=== PATIENT | female | born 1980 | race African-American/Black ===

== ENCOUNTER 2017-03-24 09:07 | Emergency (ER) | payer SELFPAY ==
[~2017-03-24] VITALS: Ht 167.6 cm; Wt 88.5 kg
[2017-03-24] MEDS ORDERED: ONDANSETRON PF 4 MG/2 ML VIAL. IV ONE (10:00)
[2017-03-24] MEDS ORDERED: FAMOTIDINE 20 MG/2 ML VIAL IVP ONE (10:00)
--- NOTE | 2017-03-24 10:06 | PHYS DOC ---
Past Medical History Past Medical History: Asthma Past Surgical History: Tubal ligation Alcohol Use: None Drug Use: None Adult General Chief Complaint Chief Complaint: ABDOMINAL PAIN HPI HPI Patient is a 36 year old female presents the ED complaining of upper abdominal pain 4 days. Patient states that after she eats, she has a burning sensation in her upper abdomen and her throat. Describes the pain as burning. Rates the pain as 4 out of 10. Associated symptoms include nausea. LMP was at the beginning of March. Denies headache, fever, vomiting, dizziness, weakness, chest pain or shortness of breath. Review of Systems Review of Systems Constitutional: Denies fever or chills [] Eyes: Denies change in visual acuity, redness, or eye pain [] HENT: Denies nasal congestion or sore throat [] Respiratory: Denies cough or shortness of breath [] Cardiovascular: No additional information not addressed in HPI [] GI: Complains of nausea and abdominal pain. Denies vomiting, bloody stools or diarrhea [] : Denies dysuria or hematuria [] Musculoskeletal: Denies back pain or joint pain [] Integument: Denies rash or skin lesions [] Neurologic: Denies headache, focal weakness or sensory changes [] Endocrine: Denies polyuria or polydipsia [] All other systems were reviewed and found to be within normal limits, except as documented in this note. Current Medications Current Medications Current Medications Medications (Trade) Dose Ordered Sig/[facility] Start Time Stop Time Status Last Admin Dose Admin Famotidine (Pepcid Vial) 20 mg 1X ONCE 03/24/17 10:00 03/24/17 10:01 DC 03/24/17 10:29 20 MG Ondansetron HCl (Zofran) 4 mg 1X ONCE 03/24/17 10:00 03/24/17 10:01 DC 03/24/17 10:30 4 MG Allergies Allergies Allergies Coded Allergies Type Severity Reaction Last Updated Verified No Known Drug Allergies 03/24/17 No Physical Exam Physical Exam Constitutional: Well developed, well nourished, no acute distress, non-toxic appearance. [] HENT: Normocephalic, atraumatic, oropharynx moist Neck: Normal range of motion, no tenderness, supple, no stridor. [] Cardiovascular:Heart rate regular rhythm, no murmur [] Lungs & Thorax: Bilateral breath sounds clear to auscultation [] Abdomen: Bowel sounds normal, soft, no tenderness, no masses, no pulsatile masses. [] Skin: Warm, dry, no erythema, no rash. [] Back: No tenderness, no CVA tenderness. [] Extremities: No tenderness, no cyanosis, no clubbing, ROM intact, no edema. [] Neurologic: Alert and oriented X 3, normal motor function, normal sensory function, no focal deficits noted. [] Psychologic: Affect normal, judgement normal, mood normal. [] Current Patient Data Vital Signs Vital Signs Date Time Temp Pulse Resp B/P (MAP) Pulse Ox O2 Delivery O2 Flow Rate FiO2 03/24/17 10:50 70 18 121/66 (84) 98 Room Air 03/24/17 09:34 98.0 98.0 Lab Values Laboratory Tests Test 03/24/17 09:55 03/24/17 10:02 03/24/17 10:05 White Blood Count 7.2 x10^3/uL (4.0-11.0) Red Blood Count 4.23 x10^6/uL (3.50-5.40) Hemoglobin 12.6 g/dL (12.0-15.5) Hematocrit 38.4 % (36.0-47.0) Mean Corpuscular Volume 91 fL (79-100) Mean Corpuscular Hemoglobin 30 pg (25-35) Mean Corpuscular Hemoglobin Concent 33 g/dL (31-37) Red Cell Distribution Width 12.8 % (11.5-14.5) Platelet Count 332 x10^3/uL (140-400) Sodium Level 140 mmol/L (136-145) Potassium Level 3.7 mmol/L (3.5-5.1) Chloride Level 104 mmol/L (98-107) Carbon Dioxide Level 24 mmol/L (21-32) Anion Gap 12 (6-14) Blood Urea Nitrogen 10 mg/dL (7-20) Creatinine 0.7 mg/dL (0.6-1.0) Estimated GFR (Cockcroft-Gault) 115.2 BUN/Creatinine Ratio 14 (6-20) Glucose Level 90 mg/dL (70-99) Calcium Level 8.3 mg/dL (8.5-10.1) L Total Bilirubin 0.5 mg/dL (0.2-1.0) Aspartate Amino Transferase (AST) 15 U/L (15-37) Alanine Aminotransferase (ALT) 18 U/L (14-59) Alkaline Phosphatase 60 U/L (46-116) Total Protein 7.4 g/dL (6.4-8.2) Albumin 3.4 g/dL (3.4-5.0) Albumin/Globulin Ratio 0.9 (1.0-1.7) L Lipase 161 U/L (73-393) Urine Collection Type Unknown Urine Color Yellow Urine Clarity Clear Urine pH 6.0 Urine Specific [place] 1.025 Urine Protein Negative mg/dL (NEG-TRACE) Urine Glucose (UA) Negative mg/dL (NEG) Urine Ketones (Stick) Trace mg/dL (NEG) Urine Blood Negative (NEG) Urine Nitrite Negative (NEG) Urine Bilirubin Negative (NEG) Urine Urobilinogen Dipstick 1.0 mg/dL (0.2 mg/dL) Urine Leukocyte Esterase Negative (NEG) Urine RBC 0 /HPF (0-2) Urine WBC Occ /HPF (0-4) Urine Squamous Epithelial Cells Mod /LPF Urine Bacteria Mod /HPF (0-FEW) Urine Mucus Marked /LPF POC Urine HCG, Qualitative Hcg negative (Negative) Laboratory Tests 03/24/17 09:55 Laboratory Tests 03/24/17 09:55 EKG EKG [] Radiology/Procedures Radiology/Procedures [] Course & Med Decision Making Course & Med Decision Making Pertinent Labs and Imaging studies reviewed. (See chart for details) []Discussed lab findings with patient. Patient's pain has resolved. Vitals stable, no acute distress. On reexamination, abdomen is soft nontender nondistended. No peritoneal signs. Tolerating by mouth. Will discharge with Prilosec. Discussed follow-up with GI in 1-2 days. Provided contact information/ education. Discussed reasons to return to the ED. Patient understands and agrees with plan. Dragon Disclaimer Dragon Disclaimer This electronic medical record was generated, in whole or in part, using a voice recognition dictation system. Departure Departure Impression: Primary Impression: Acid reflux Disposition: 01 HOME, SELF-CARE Condition: IMPROVED Referrals: DIANA ACUÑA MD Patient Instructions: Diet for Gastroesophageal Reflux Disease, Adult, Gastroesophageal Reflux Disease, Adult Scripts Omeprazole Magnesium (PRILOSEC OTC) 20 Mg Tablet.dr 1 TAB PO DAILY, #20 TAB 3 Refills Prov: SIMI SILVA 03/24/17 SIMI SILVA Mar 24, 2017 10:06
[2017-03-24 10:09] LABS: HEMATOCRIT 38.4 % (36.0-47.0); HEMOGLOBIN 12.6 g/dL (12.0-15.5); RED BLOOD COUNT 4.23 x10^6/uL (3.50-5.40); RED CELL DISTRIBUTION WIDTH 12.8 % (11.5-14.5); WHITE BLOOD COUNT 7.2 x10^3/uL (4.0-11.0)
[2017-03-24 10:17] LABS: BILIRUBIN,URINE NEGATIVE (NEG); GLUCOSE,URINE NEGATIVE (NEG); NITRITE,URINE NEGATIVE (NEG); PROTEIN,URINE NEGATIVE (NEG-TRACE)
[2017-03-24 10:28] LABS: BACTERIA,URINE MOD /HPF (0-FEW); RBC,URINE 0 /HPF (0-2); SQUAMOUS EPITHELIAL CELL,UR MOD /LPF; WBC,URINE OCC /HPF (0-4)
[2017-03-24 10:31] LABS: CALCIUM 8.3 mg/dL (8.5-10.1); CREATININE 0.7 mg/dL (0.6-1.0); GFR 115.2; POTASSIUM 3.7 mmol/L (3.5-5.1)
[2017-03-24 10:37] LABS: ALBUMIN 3.4 g/dL (3.4-5.0); ALBUMIN/GLOBULIN RATIO 0.9 (1.0-1.7); TOTAL BILIRUBIN 0.5 mg/dL (0.2-1.0); TOTAL PROTEIN 7.4 g/dL (6.4-8.2)
[2017-03-24] MEDS ORDERED: OMEP20TA63 PO (10:48)
[2017-03-24 10:50] VITALS: BP 121/66
== END 2017-03-24 10:55 | disposition home or self-care (01) ==
LOC: ER 09:07
DX: K21.9 Gastro-esophageal reflux disease without esophagitis (principal); J45.909 Unspecified asthma, uncomplicated
CPT/HCPCS: 36415; 80053; 81001; 81025; 83690; 85027; 96374; 96375; 99284; J2405; S0028

== ENCOUNTER 2018-04-22 12:54 | Emergency (ER) | payer SELFPAY ==
[~2018-04-22] VITALS: Ht 167.6 cm; Wt 86.2 kg
[~2018-04-22 12:54] MED LIST: OMEP20TA63 PO
[2018-04-22 13:43] VITALS: BP 108/65
[2018-04-22] MEDS ORDERED: HYDROcodone/APAP 5/325MG 1 TAB TABLET PO ONE (14:00)
[2018-04-22] MEDS ORDERED: SULF1TAB24 PO (14:10)
[2018-04-22] MEDS ORDERED: HYDR-3164 PO (14:11)
--- NOTE | 2018-04-22 14:11 | PHYS DOC ---
Past Medical History Past Medical History: Asthma Past Surgical History: Tubal ligation Alcohol Use: None Drug Use: None Adult General Chief Complaint Chief Complaint: ABSCESS HPI HPI Patient is a 37 year old female who presents with an abscess behind her ear x 1 week. She denies fever, nausea or vomiting. Review of Systems Review of Systems Constitutional: Denies fever or chills [] Eyes: Denies change in visual acuity, redness, or eye pain [] HENT: Denies nasal congestion or sore throat [] Respiratory: Denies cough or shortness of breath [] Cardiovascular: No additional information not addressed in HPI [] GI: Denies abdominal pain, nausea, vomiting, bloody stools or diarrhea [] : Denies dysuria or hematuria [] Musculoskeletal: Denies back pain or joint pain [] Integument: See HPI Neurologic: Denies headache, focal weakness or sensory changes [] Endocrine: Denies polyuria or polydipsia [] All other systems were reviewed and found to be within normal limits, except as documented in this note. Current Medications Current Medications Current Medications Medications (Trade) Dose Ordered Sig/[facility] Start Time Stop Time Status Last Admin Dose Admin Acetaminophen/ Hydrocodone Bitart (Lortab 5/325) 1 tab 1X ONCE 04/22/18 14:00 04/22/18 14:01 DC 04/22/18 14:08 1 TAB Allergies Allergies Allergies Coded Allergies Type Severity Reaction Last Updated Verified No Known Drug Allergies 03/24/17 No Physical Exam Physical Exam Constitutional: Well developed, well nourished, no acute distress, non-toxic appearance. [] HENT: Normocephalic, atraumatic, bilateral external ears normal, oropharynx moist, no oral exudates, nose normal. [] Eyes: PERRLA, EOMI, conjunctiva normal, no discharge. [] Neck: Normal range of motion, no tenderness, supple, no stridor. [] Cardiovascular:Heart rate regular rhythm, no murmur [] Lungs & Thorax: Bilateral breath sounds clear to auscultation [] Abdomen: Bowel sounds normal, soft, no tenderness, no masses, no pulsatile masses. [] Skin: There is a 1 cm papule with induration but no fluctuance Back: No tenderness, no CVA tenderness. [] Extremities: No tenderness, no cyanosis, no clubbing, ROM intact, no edema. [] Neurologic: Alert and oriented X 3, normal motor function, normal sensory function, no focal deficits noted. [] Psychologic: Affect normal, judgement normal, mood normal. [] Current Patient Data Vital Signs EKG EKG [] Radiology/Procedures Radiology/Procedures [] Course & Med Decision Making Course & Med Decision Making Pertinent Labs and Imaging studies reviewed. (See chart for details) [] Staff Physician Addendum: I was working in the ER during the course of this patient's visit. I was available for consultation as needed, but I was not directly involved in the care of this patient. Dragon Disclaimer Dragon Disclaimer This electronic medical record was generated, in whole or in part, using a voice recognition dictation system. Departure Departure Impression: Primary Impression: Abscess Disposition: 01 HOME, SELF-CARE Condition: STABLE Referrals: NO PCP (PCP) Patient Instructions: Abscess Additional Instructions: Take medication as prescribed. Do not drive or operate heavy machinery while taking the pain medication. Use hot compresses several times daily. If not i mproving in 3-4 days follow-up with your primary care provider or return to the emergency department if worsening. Scripts Hydrocodone/Apap 5-325 (NORCO 5-325 TABLET) 1 Each Tablet 1 TAB PO PRN Q6HRS PRN for PAIN, #10 TAB 0 Refills Prov: SHELLEY CUEVAS APRN 04/22/18 Sulfamethoxazole/Trimethoprim (BACTRIM DS TABLET) 1 Each Tablet 1 TAB PO BID for abscess, #20 TAB Prov: SHELLEY CUEVAS APRN 04/22/18 SHELLEY CUEVAS APRN Apr 22, 2018 14:11 LEEANN EVERETT MD August 24, 2018 11:43
== END 2018-04-22 14:25 | disposition home or self-care (01) ==
LOC: ER 12:54
DX: H60.01 Abscess of right external ear (principal); J45.909 Unspecified asthma, uncomplicated
CPT/HCPCS: 99283

== ENCOUNTER 2019-06-07 18:16 | Emergency (ER) | payer SELFPAY ==
[~2019-06-07] VITALS: Ht 167.6 cm; Wt 86.0 kg
[~2019-06-07 18:16] MED LIST changes: +HYDR-3164 PO; +SULF1TAB24 PO
[2019-06-07 19:45] VITALS: BP 127/70
--- NOTE | 2019-06-07 20:49 | RAD ---
CHEST PA LATERAL Technique: PA and lateral views of the chest were obtained. Clinical History: Comparison: None. Findings: The heart and pulmonary vasculature appear within normal limits. The lungs are clear. The pleural margins are clear. Impression: No acute chest process is seen. Electronically signed by: Mark Crabtree III, MD (06/07/2019 8:46 PM) [id number]
[2019-06-07 21:03] LABS: BILIRUBIN,URINE NEGATIVE (NEG); CLARITY,URINE CLEAR; COLOR,URINE YELLOW; NITRITE,URINE NEGATIVE (NEG); PH,URINE 7.5; PROTEIN,URINE NEGATIVE (NEG-TRACE)
[2019-06-07 21:09] LABS: BARBITURATES NEG (NEG); BENZODIAZEPINES NEG (NEG); CANNABINOIDS NEG (NEG); COCAINE NEG (NEG); METHADONE NEG (NEG); OPIATES NEG (NEG); PHENCYCLIDINE NEG (NEG)
[2019-06-07 21:10] LABS: AMPHETAMINE/METHAMPHETAMINE NEG (NEG)
[2019-06-07 21:12] LABS: BACTERIA,URINE MANY /HPF (0-FEW); SQUAMOUS EPITHELIAL CELL,UR FEW /LPF
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
[2019-06-07 21:33] LABS: U PREG PATIENT NEGATIVE (NEG)
[2019-06-07 21:37] LABS: INFLUENZA A PATIENT NEGATIVE (NEGATIVE); INFLUENZA B PATIENT NEGATIVE (NEGATIVE)
[2019-06-07] MEDS ORDERED: ALBUTEROL SULFATE 2.5 MG/3 ML NEBU. NEB ONE (22:00)
--- NOTE | 2019-06-07 22:26 | RAD ---
Exam: CT head INDICATION: Headache TECHNIQUE: Sequential axial images through the head were obtained without the administration of IV contrast. Comparisons: None FINDINGS: No focal parenchymal lesion or hemorrhage is identified. There is no midline shift or sulcal effacement. No acute vascular territory infarction is identified. Bran-white distinction is preserved. The ventricular system is within normal limits without compression hydrocephalus. The basal cisterns are well maintained. The visualized portions of the paranasal sinuses and mastoid air cells are well-pneumatized. No acute fractures. IMPRESSION: No acute intracranial abnormality. Exposure: One or more of the following in the visualized dose reduction techniques were utilized for this examination: 1. Automated exposure control 2. Adjustment of the MA and/or KV according to patient size Use of iterative of reconstructive technique Electronically signed by: Elisha Harrison MD (06/07/2019 10:23 PM) [id number]
[2019-06-07] MEDS ORDERED: KETOROLAC 60 MG/2 ML VIAL. IM ONE (22:30)
[2019-06-07] MEDS ORDERED: diphenhydrAMINE 50 MG/ML VIAL IM ONE (22:30)
[2019-06-07] MEDS ORDERED: PROCHLORPERAZINE 10 MG/2 ML VIAL. IM ONE (22:30)
[2019-06-07] MEDS ORDERED: CEPH-264 PO (22:31)
[2019-06-07] MEDS ORDERED: METH4TAB2 PO (22:31)
[2019-06-07] MEDS ORDERED: ALBU2.5V8 INH (22:31)
[2019-06-07] MEDS ORDERED: ONDA4TAB12 PO (22:31)
== END 2019-06-07 22:40 | disposition home or self-care (01) ==
LOC: ER 18:16
DX: N30.00 Acute cystitis without hematuria (principal); R51 Headache; R05 Cough; R50.9 Fever, unspecified; R07.89 Other chest pain; R55 Syncope and collapse; J45.909 Unspecified asthma, uncomplicated; Z98.51 Tubal ligation status; Z79.899 Other long term (current) drug therapy
CPT/HCPCS: 70450; 71046; 80307; 81001; 81025; 87086; 87804; 94640; 96372; 99285; J0780; J1200; J1885; J7613

== ENCOUNTER 2019-10-29 16:17 | Emergency (ER) | payer SELFPAY ==
[~2019-10-29] VITALS: Ht 167.6 cm; Wt 95.5 kg
[~2019-10-29 16:17] MED LIST changes: +ALBU2.5V8 INH; +CEPH-264 PO; +METH4TAB2 PO; +ONDA4TAB12 PO
--- NOTE | 2019-10-29 17:19 | PHYS DOC ---
Past Medical History Past Medical History: Asthma, Other Additional Past Medical Histor: HEART MURMUR Past Surgical History: No Surgical History Smoking Status: Never Smoker Alcohol Use: Occasionally Drug Use: None General Adult EDM: Chief Complaint: COUGH HPI: HPI: Patient is a 39 year old female patient presents with cough, intermittent chest discomfort. Patient states that for the last couple days she has had a dry cough, worse at night, and feels that she has a rattle in her chest. States she has not had any fevers has not been around anybody has been ill, however she does states she has used her long-acting inhaler which does seem to help on and off. States she had tried some Benadryl and some other cold medications and they did help briefly, however she still has some cough. Denies exposure to any ill persons, denies nausea, vomiting. Patient does not smoke. Review of Systems: Review of Systems: Constitutional: Denies fever or chills. [] Eyes: Denies change in visual acuity. [] HENT: Does reports intermittent nasal congestion and posterior nasal drainage. Denies sore throat Respiratory: Reports dry cough for the last several days, denies dyspnea] Cardiovascular: States occasional chest tightness, however denies chest pain or edema GI: Denies abdominal pain, nausea, vomiting, bloody stools or diarrhea. [] : Denies dysuria. [] Musculoskeletal: Denies back pain or joint pain. [] Integument: Denies rash. [] Neurologic: Denies headache, focal weakness or sensory changes. [] Endocrine: Denies polyuria or polydipsia. [] Lymphatic: Denies swollen glands. [] Psychiatric: Denies depression or anxiety. [] Heart Score: HEART Score for Chest Pain: HEART Score for Chest Pain Response (Comments) Value History Slighlty/Non-Suspicious 0 ECG Normal 0 Age < 45 0 Risk Factors No Risk Factors 0 Troponin < Normal Limit 0 Total 0 Risk Factors: Risk Factors: DM, Current or recent (<one month) smoker, HTN, HLP, family history of CAD, obesity. Risk Scores: Score 0 - 3: 2.5% MACE over next 6 weeks - Discharge Home Score 4 - 6: 20.3% MACE over next 6 weeks - Admit for Clinical Observation Score 7 - 10: 72.7% MACE over next 6 weeks - Early Invasive Strategies Allergies: Allergies: Allergies Coded Allergies Type Severity Reaction Last Updated Verified No Known Drug Allergies 03/24/17 No Physical Exam: PE: Constitutional: Well developed, well nourished, no acute distress, non-toxic appearance. [] HENT: Normocephalic, atraumatic, bilateral external ears normal, oropharynx moist, tonsils 0, minimal to no postnasal drainage noted, no oral exudates, nose normal. [] Eyes: PERRLA, EOMI, conjunctiva normal, no discharge. [] Neck: Normal range of motion, no tenderness, supple, no stridor. [] Cardiovascular:Heart rate regular rhythm, no murmur [] Lungs & Thorax: Bilateral breath sounds clear to auscultation no chest wall tenderness on palpation [] Abdomen: Bowel sounds normal, soft, no tenderness, no masses, no pulsatile masses. [] Skin: Warm, dry, no erythema, no rash. [] Back: No tenderness, no CVA tenderness. [] Extremities: No tenderness, no cyanosis, no clubbing, ROM intact, no edema. [] Neurologic: Alert and oriented X 3, normal motor function, normal sensory function, no focal deficits noted. [] Psychologic: Affect normal, judgement normal, mood normal. [] Current Patient Data: Labs: Laboratory Tests Test 10/29/19 16:48 POC Urine HCG, Qualitative Hcg negative (Negative) Vital Signs: Vital Signs Date Time Temp Pulse Resp B/P (MAP) Pulse Ox O2 Delivery O2 Flow Rate FiO2 10/29/19 16:50 98.3 84 14 120/66 (84) 100 Room Air 98.3 EKG: EKG: [] Radiology/Procedures: Radiology/Procedures: []Clinical History: Reason: chest pain, cough / Spl. Instructions: / History: Technique: AP view of the chest was obtained at 10/29/2019 5:11 PM. Comparison: June 07, 2019. Findings: The cardiomediastinal silhouette is normal. The pulmonary vasculature is normal. The lungs and pleural margins are clear. Impression: No evidence of an acute cardiopulmonary process. Electronically signed by: Cherelle Crabtree III, MD (10/29/2019 7:38 PM) [facility] DICTATED and SIGNED BY: CHERELLE CRABTREE III, MD DATE: 10/29/191937 Course & Med Decision Making: Course & Med Decision Making Pertinent Labs and Imaging studies reviewed. (See chart for details) [] John Disclaimer: John Disclaimer: This electronic medical record was generated, in whole or in part, using a voice recognition dictation system. Departure Departure Impression: Primary Impression: Upper respiratory symptom Additional Impression: Cough Disposition: 01 HOME, SELF-CARE Condition: GOOD Referrals: NO PCP (PCP) Patient Instructions: Cough, Adult Additional Instructions: As we discussed, you may continue to take the cough and cold medications as you have been taking. Make sure you are drinking plenty fluids, getting plenty of rest. You start to take either Zyrtec or Claritin, 1 tablet each day, do this for the next 2 weeks to see if this is improving your symptoms a little bit. You may also take the cough medications as prescribed, do not chew tablets only swallow the. Follow-up with your primary care provider as needed. If you are concerned over COVID symptoms, you may go to a [facility] or the health department, they will often have a rapid test with results in 1 to 2 hours. Scripts Benzonatate (TESSALON PERLE) 100 Mg Capsule 1 CAP PO TID PRN for COUGH, #30 CAP Prov: SIMI SÁNCHEZ APRN 10/29/19 Justicifation of Admission Dx: Justifications for Admission: Justification of Admission Dx: N/A SIMI SÁNCHEZ APRN Oct 29, 2019 17:18
[2019-10-29 17:41] LABS: BASO # 0.1 x10^3/uL (0.0-0.2); BASO % 1 % (0-3); EOS # 0.6 x10^3/uL (0.0-0.7); EOS % 5 % (0-3); HEMATOCRIT 40.5 % (36.0-47.0); HEMOGLOBIN 13.7 g/dL (12.0-15.5); LYMPH # 2.1 x10^3/uL (1.0-4.8); LYMPH % 20 % (24-48); MEAN CORPUSCULAR HEMOGLOBIN 31 pg (25-35); MEAN CORPUSCULAR HGB CONC 34 g/dL (31-37); MEAN CORPUSCULAR VOLUME 93 fL (79-100); MONO # 0.7 x10^3/uL (0.0-1.1); MONO % 6 % (0-9); NEUT # 7.1 x10^3/uL (1.8-7.7); NEUT % 68 % (31-73); PLATELET COUNT 323 x10^3/uL (140-400); RED BLOOD COUNT 4.35 x10^6/uL (3.50-5.40); RED CELL DISTRIBUTION WIDTH 13.4 % (11.5-14.5); WHITE BLOOD COUNT 10.4 x10^3/uL (4.0-11.0)
[2019-10-29 18:02] LABS: CALCIUM 8.6 mg/dL (8.5-10.1); GFR 75.1; POTASSIUM 3.9 mmol/L (3.5-5.1)
[2019-10-29] MEDS ORDERED: BENZ100C PO (19:21)
[2019-10-29 19:30] VITALS: BP 122/71
--- NOTE | 2019-10-29 19:41 | RAD ---
CHEST AP ONLY Clinical History: Reason: chest pain, cough / Spl. Instructions: / History: Technique: AP view of the chest was obtained at 10/29/2019 5:11 PM. Comparison: June 07, 2019. Findings: The cardiomediastinal silhouette is normal. The pulmonary vasculature is normal. The lungs and pleural margins are clear. Impression: No evidence of an acute cardiopulmonary process. Electronically signed by: Mark Crabtree III, MD (10/29/2019 7:38 PM) [facility]
--- NOTE | 2019-11-02 03:36 | EKG ---
[facility] [address] [place] [address] Test Date: 2019-10-29 Test Time: 17:34:37 Pat Name: DAGOBERTO HUNTER Department: Room: Gender: F [employer] Consultant: : 1980 Requested By: SIMI SÁNCHEZ Order Number: [id number] Reading MD: Measurements Intervals [place] Rate: 79 P: 77 NM: 172 QRS: 73 QRSD: 76 T: 38 QT: 354 QTc: 407 Interpretive Statements SINUS RHYTHM NORMAL ECG RI6.01 No previous ECG available for comparison
== END 2019-10-29 19:37 | disposition home or self-care (01) ==
LOC: ER 16:17
DX: R09.89 Other specified symptoms and signs involving the circulatory and respiratory systems (principal); R05 Cough; R07.89 Other chest pain; J45.909 Unspecified asthma, uncomplicated
CPT/HCPCS: 36415; 71045; 80048; 81025; 84484; 85025; 93005; 99285-25